=== PATIENT | male | born 1975 | race Caucasian/White ===

== ENCOUNTER 2018-06-07 09:34 | Emergency (ER) | payer BC ==
[2018-06-07] MEDS ORDERED: ONDANSETRON HCL IV 4 MG/2 ML VIAL IV ONE (09:54)
[2018-06-07] MEDS ORDERED: SODIUM CHLORIDE 0.9% 500 ML IV ONE (09:54)
[2018-06-07] MEDS ORDERED: KETOROLAC 30 MG/ML VIAL IVP ONE (09:55)
--- NOTE | 2018-06-07 10:07 | Emergency Department Record ---
History of Present Illness - General Chief Complaint: Abdominal Pain Stated Complaint: ABD PAIN Time Seen by Provider: 06/07/18 09:36 Source: Patient Mode of Arrival: Ambulatory Limitations: No limitations - History of Present Illness Initial Comments: The patient is here due to the acute onset of R lower quad AP about 30 minutes prior to presenting to the ER. He has had nausea but no vomiting. The patient was well prior and states he has a long hx of ureter stones. He has had lithotrypsy in the past. He denies any recent illnesses prior to the onset of the pain. MD Complaint: Abdominal pain Onset/Timin -: Minutes(s) Location: RLQ Severity scale (1-10): 9 Quality: Sharp Consistency: Constant Improves With: Nothing Worsens With: Nothing - Related Data Home Medications Medication Instructions Recorded Confirmed Last Taken RX: Azithromycin 250 mg PO DAILY 06/07/18 06/07/18 06/06/18 Allergies Allergy/AdvReac Type Severity Reaction Status Date / Time No Known Drug Allergies Allergy Unknown Unverified 05/31/18 08:51 [NO KNOWN DRUG ALLERGIES] Travel Screening - Travel/Exposure Within Last 30 Days Have you traveled within the last 30 days?: No - Travel/Exposure Within Last Year Have you traveled outside the [place] in the last year?: Yes Location Detail:: [place] - Additonal Travel Details Have you been exposed to anyone with a communicable illness?: No - Travel Symptoms Symptom Screening: None Review of Systems Constitutional: Denies: Chills, Fever Eyes: Denies: Eye discharge ENT: Denies: Congestion Respiratory: Denies: Cough, Dyspnea Cardiovascular: Denies: Arrhythmia Endocrine: Denies: Fatigue Gastrointestinal: Reports: Abdominal pain, Nausea. Denies: Vomiting Genitourinary: Denies: Dysuria Musculoskeletal: Denies: Arthralgia, Back pain Skin: Denies: Bruising Past Medical History - SOCIAL HISTORY Smoking Status: Never smoker Alcohol Use: Occasional Drug Use: None - RESPIRATORY Hx Respiratory Disorders: No - CARDIOVASCULAR Hx Cardio Disorders: No - NEURO Hx Neuro Disorders: No - GI Hx GI Disorders: No - Hx Genitourinary Disorders: Yes Hx Kidney Stones: Yes - ENDOCRINE Hx Endocrine Disorders: No - MUSCULOSKELETAL Hx Musculoskeletal Disorders: Yes Hx Back Injury: Yes - PSYCH Hx Psych Problems: No - HEMATOLOGY/ONCOLOGY Hx Hematology/Oncology Disorders: No Family Medical History Any Significant Family History?: No Hx Diabetes: Father Hx Heart Disease: Mother Hx HTN: Mother Physical Exam - General General Appearance: Alert, Oriented x3, Cooperative, Mild distress - Head Head exam: Atraumatic, Normocephalic - Eye Eye exam: Normal appearance - Neck Neck exam: Normal inspection, Full ROM. negative: Tenderness - Respiratory Respiratory exam: Normal lung sounds bilaterally. negative: Respiratory distress - Cardiovascular Cardiovascular Exam: Regular rate, Normal rhythm, Normal heart sounds - GI/Abdominal GI/Abdominal exam: Soft, Tenderness (there is mild RLQ tenderness.). negative: Guarding, Pulsatile mass, Rebound, Rigid - exam: Deferred - Extremities Extremities exam: Normal inspection, Full ROM, Normal capillary refill. negative: Tenderness - Back Back exam: Reports: Normal inspection. Denies: CVA tenderness (R), CVA tenderness (L) - Neurological Neurological exam: Alert, Normal gait. negative: Abnormal gait, Motor sensory deficit - Skin Skin exam: negative: Rash Course Vital Signs 06/07/18 09:45 Temperature 97.7 F Pulse Rate 73 Respiratory 16 Rate Blood Pressure 133/100 Pulse Ox 99 - Reevaluation(s) Reevaluation #1: The patient is doing a lot better at this time. His pain is almost gone and he denies any nausea or vomiting. I did discuss the CT results and the need for F/ U with Urology. 06/07/18 10:41 Medical Decision Making - Data Complexity MDM Data: Labs Ordered and/or Reviewed, X-Ray Ordered and/or Reviewed - Lab Data Result diagrams: 06/07/18 10:07 06/07/18 10:07 - Radiology Data Radiology results: Report reviewed (CT: 5x5x7 mm proximal R ureter stone with hydro.) Disposition Disposition: Discharge Clinical Impression: Ureteral stone with hydronephrosis Disposition: Home, Self-Care Condition: (2) Stable Instructions: Renal Colic (ED) Additional Instructions: Please take your home [place] as needed with the Flomax and also add Motrin. Please call Dr. Galo for further evaluation. Return to the ER for any worsening pain, fever, or vomiting. Forms: Patient Portal Access Time of Disposition: 10:40 Quality - Quality Measures Quality Measures: N/A - Blood Pressure Screening View Details: Yes Does Patient Have Any of the Following: No Blood Pressure Classification: Hypertensive Reading Systolic Measurement: 133 Diastolic Measurement: 100 Screening for High Blood Pressure: < First Hypertensive BP, F/U Documented > [ [id number]] First Hypertensive Follow-up Interventions: Referral to alternative/primary care provider.
[2018-06-07 10:15] LABS: HEMATOCRIT 44.7 % (42.0-52.0); HEMOGLOBIN 15.6 gm/dl (14.0-18.0); MEAN CELL VOLUME 85.3 fl (81-97); MEAN CORPUSCULAR HEMOGLOBIN 29.8 pg (27-33); MEAN CORPUSCULAR HGB CONC 34.9 g/dl (32-36); MEAN PLATELET VOLUME 9.5 fl (7.4-10.4); PLATELET COUNT 316 K/uL (130-400); RED BLOOD COUNT 5.24 M/uL (4.40-5.70); RED CELL DISTRIBUTION WIDTH 12.9 % (11.5-14.5); URINE APPEARANCE CLEAR; URINE BILIRUBIN NEGATIVE (NEGATIVE); URINE BLOOD TRACE-I (NEGATIVE); URINE COLOR YELLOW; URINE GLUCOSE (UA) NEGATIVE (NEGATIVE); URINE KETONE NEGATIVE (NEGATIVE); URINE LEUKOCYTE ESTERASE NEGATIVE (NEGATIVE); URINE NITRITE NEGATIVE (NEGATIVE); URINE PROTEIN NEGATIVE (NEGATIVE); URINE UROBILINOGEN 0.2 E.U./dL (0.20 - 1.00); WHITE BLOOD COUNT W/O DIFF 7.3 K/uL (4.2-12.2)
[2018-06-07 10:23] LABS: URINE EPITHELIAL CELLS 0 - 2 (FEW); URINE MUCUS LIGHT; URINE RBC 0 - 2 (NONE SEEN); URINE WBC 0 - 2 (0-2/hpf)
[2018-06-07 10:26] LABS: BLOOD UREA NITROGEN 14 mg/dL (6-20); CREATININE 0.9 mg/dL (0.7-1.2); EST GLOMERULAR FILTRATION RATE > 60 mL/min
[2018-06-07 10:28] LABS: GLUCOSE,RANDOM 103 mg/dL (74-109)
--- NOTE | 2018-06-09 14:17 | CT SCAN REPORT ---
DATE: 06/07/2018 at 1007 hours. EXAM: CT OF THE ABDOMEN AND PELVIS WITHOUT CONTRAST. HISTORY: Sudden onset of acute right lower quadrant pain one hour ago. TECHNIQUE: Thin-collimation helical CT examination of the abdomen and pelvis was performed without oral or intravenous contrast administration. Lack of oral and intravenous contrast utilization limits evaluation of the bowel and solid viscera, respectively. COMPARISON: CT of the abdomen and pelvis without contrast dated 11/06/2012. FINDINGS: There is linear opacity in the posterolateral left lung base, new in the interval, consistent with atelectasis or scar. The lung bases are otherwise clear, and there is no pleural or pericardial effusion. No new focal abnormality demonstrated in the liver, spleen, pancreas, nor adrenal glands. Healed granulomatous disease is redemonstrated within the spleen throughout as well as a single calcified granuloma within the central liver near the gallbladder fossa. The gallbladder is surgically absent, and no biliary ductal dilatation is seen. Bilateral nephrolithiasis is present. There are two nonobstructing calculi within the left kidney, with that in the mid kidney measuring 3.0 mm, and that more inferiorly measuring 2.5 mm. The nonobstructing calculus in the lower pole of the right kidney measures 5.0 mm. A previously demonstrated calculus in the upper pole of the right kidney is no longer identified. No renal mass. There is moderate dilatation of the right renal collecting system down to the proximal ureteral level where there is an obstructing calculus measuring approximately 5.0 x 5.0 x 7.0 mm. There is associated right perinephric fat stranding. The right ureter distal to the obstructing calculus is normal in appearance. The left renal collecting system is normal in appearance. No intrinsic urinary bladder abnormality is seen. No pelvic mass, lymphadenopathy, nor free pelvic fluid. No intraabdominal nor retroperitoneal lymphadenopathy. There is mild atherosclerosis without focal aneurysmal dilatation of the abdominal aorta nor iliac arteries. No gross bowel dilatation nor bowel wall thickening. The appendix is visualized and is normal in appearance. There is apparent borderline to mild wall thickening of the distal sigmoid colon extending into the proximal rectum, likely due to incomplete distension with mild inflammatory change less likely. No lytic or blastic bone lesion. IMPRESSION: 1. A 5.0 X 5.0 X 7.0 MM OBSTRUCTING CALCULUS IN THE PROXIMAL RIGHT URETER CAUSING MODERATE UPSTREAM COLLECTING SYSTEM DILATATION AND MILD PERINEPHRIC FAT STRANDING. 2. BILATERAL NEPHROLITHIASIS. 3. 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 4. APPARENT BORDERLINE TO MILD WALL THICKENING OF THE DISTAL SIGMOID COLON EXTENDING INTO THE PROXIMAL RECTUM, LIKELY DUE TO INCOMPLETE DISTENSION; THOUGH MILD INFLAMMATORY CHANGE IS NOT ENTIRELY EXCLUDED. THERE IS A SIMILAR APPEARANCE OF THE DESCENDING COLON. 5. STATUS POST CHOLECYSTECTOMY. 6. LINEAR SCARRING VERSUS ATELECTASIS WITHIN THE LEFT LUNG BASE. JOB NUMBER: [id number] MTDD
== END 2018-06-07 10:49 | disposition home or self-care (01) ==
LOC: ER 09:34
DX: N13.2 Hydronephrosis with renal and ureteral calculous obstruction (principal); R11.0 Nausea; Z87.442 Personal history of urinary calculi
CPT/HCPCS: 99284 ×2; 96374; 96375; 80048; 81001; 85027; 74176; J1885; J2405